=== PATIENT | male | born 1985 | race Caucasian/White ===

== ENCOUNTER 2020-07-04 15:56 | Emergency (ER) | payer OTHER ==
--- NOTE | 2020-07-04 16:40 | EDPHYS ---
Physician Documentation [facility] Name: Adrian Self Age: 35 yrs Sex: Male : 1985 Arrival Date: 07/04/2020 Time: 16:01 Bed 14 Private MD: ED Physician Chidi Stuart HPI: 07/04 16:54 This 35 yrs old Male presents to ER via Wheelchair with complaints of Toe snw Injury. 16:54 The patient presents with decreased range of motion, an injury, pain. The complaints snw affect the left foot. Context: The problem was sustained at home, resulted from stubbing toe on door. Mechanism of Injury: Plantar flexion-flexion the patient can partially bear weight, the patient is able to ambulate. Onset: The symptoms/episode began/occurred suddenly, just prior to arrival. Associated signs and symptoms: Pertinent positives: bleeding. Severity of symptoms: At their worst the symptoms were moderate. The patient has not experienced similar symptoms in the past. The patient has not recently seen a physician. no LOC, area bleeding at base of nail. Historical: - Allergies: 16:11 No Known Allergies; iw - Home Meds: 16:11 None [Active]; iw - PMHx: 16:11 None; iw - PSHx: 16:11 thumb; iw - Immunization history:: Last tetanus immunization: < 10 years ago. - Social history:: Smoking status: Patient denies any tobacco usage or history of. ROS: 16:53 Constitutional: Negative for fever, chills, and weight loss, Eyes: Negative for injury, snw pain, redness, and discharge, ENT: Negative for injury, pain, and discharge, Neck: Negative for injury, pain, and swelling, Cardiovascular: Negative for chest pain, palpitations, and edema, Respiratory: Negative for shortness of breath, cough, wheezing, and pleuritic chest pain, Abdomen/GI: Negative for abdominal pain, nausea, vomiting, diarrhea, and constipation, Back: Negative for injury and pain, : Negative for injury, bleeding, discharge, and swelling, Skin: Negative for injury, rash, and discoloration, Neuro: Negative for headache, weakness, numbness, tingling, and seizure, Psych: Negative for depression, anxiety, suicide ideation, homicidal ideation, and hallucinations. 16:53 MS/extremity: Positive for injury or acute deformity, decreased range of motion, tenderness, of the left first toe, bleeding from great toenail. Exam: 16:52 Constitutional: This is a well developed, well nourished patient who is awake, alert, snw and in no acute distress. Head/Face: Normocephalic, atraumatic. Eyes: Pupils equal round and reactive to light, extra-ocular motions intact. Lids and lashes normal. Conjunctiva and sclera are non-icteric and not injected. Cornea within normal limits. Periorbital areas with no swelling, redness, or edema. ENT: Nares patent. No nasal discharge, no septal abnormalities noted. Tympanic membranes are normal and external auditory canals are clear. Oropharynx with no redness, swelling, or masses, exudates, or evidence of obstruction, uvula midline. Mucous membranes moist. Neck: Trachea midline, no thyromegaly or masses palpated, and no cervical lymphadenopathy. Supple, full range of motion without nuchal rigidity, or vertebral point tenderness. No Meningismus. Chest/axilla: Normal chest wall appearance and motion. Nontender with no deformity. No lesions are appreciated. Cardiovascular: Regular rate and rhythm with a normal S1 and S2. No gallops, murmurs, or rubs. Normal PMI, no JVD. No pulse deficits. Respiratory: Lungs have equal breath sounds bilaterally, clear to auscultation and percussion. No rales, rhonchi or wheezes noted. No increased work of breathing, no retractions or nasal flaring. Abdomen/GI: Soft, non-tender, with normal bowel sounds. No distension or tympany. No guarding or rebound. No evidence of tenderness throughout. Back: No spinal tenderness. No costovertebral tenderness. Full range of motion. Skin: Warm, dry with normal turgor. Normal color with no rashes, no lesions, and no evidence of cellulitis. Neuro: Awake and alert, GCS 15, oriented to person, place, time, and situation. Cranial nerves II-XII grossly intact. Motor strength 5/5 in all extremities. Sensory grossly intact. Cerebellar exam normal. Normal gait. Psych: Awake, alert, with orientation to person, place and time. Behavior, mood, and affect are within normal limits. 16:52 Musculoskeletal/extremity: Extremities: grossly normal except: noted in the left first toe: decreased ROM, swelling, tenderness, blood seeping from base of nail. Vital Signs: 16:08 BP 130 / 91; Pulse 68; Resp 17; Temp 97.9; Pulse Ox 100% ; Pain 2/10; ll1 17:17 BP 135 / 86; Pulse 64; Resp 17; Pulse Ox 100% ; Pain 1/10; ll1 MDM: 16:40 Patient medically screened. snw 16:54 Data reviewed: vital signs, nurses notes. Data interpreted: Pulse oximetry: on room air snw is 100 %. Interpretation: normal. Counseling: I had a detailed discussion with the patient and/or guardian regarding: the historical points, exam findings, and any diagnostic results supporting the discharge/admit diagnosis, radiology results, the need for outpatient follow up, to return to the emergency department if symptoms worsen or persist or if there are any questions or concerns that arise at home. Special discussion: Based on the history and exam findings, there is no indication for further emergent testing or inpatient evaluation. I discussed with the patient/guardian the need to see the orthopedic surgeon for further evaluation of the symptoms. I discussed with the patient/guardian the need to see the consumer loan specialist for further evaluation of the symptoms. 07/04 16:19 Order name: Foot Left 3 View XRAY snw 07/04 17:06 Order name: RAD; Complete Time: 18:09 EDMS 07/04 16:39 Order name: Misc. Order: low pressure dressing; Complete Time: 16:50 snw 07/04 16:39 Order name: Post-op shoe; Complete Time: 16:50 snw Administered Medications: 16:49 Drug: KeFLEX 500 mg Route: PO; ll1 17:18 Follow up: Response: No adverse reaction; RASS: Alert and Calm (0) ll1 16:50 Drug: Tetanus-Diphtheria Toxoid Adult 0.5 ml {Radiology Supervisor: [employer]. Exp: ll1 11/27/2022. Lot #: [id number]. } Route: IM; Site: right deltoid; 17:18 Follow up: Response: No adverse reaction; RASS: Alert and Calm (0) ll1 Disposition: 07/05 09:41 Co-signature as Attending Physician, Chidi Stuart MD I agree with the assessment and kdr plan of care. Disposition: 07/04/20 16:40 Discharged to Home. Impression: Nondisplaced fracture of distal phalanx of left great toe. - Condition is Stable. - Discharge Instructions: Cast or Splint Care, Adult, RICE for Routine Care of Injuries, Toe Fracture, VIS, Tetanus, Diphtheria (Td) - [facility]. - Prescriptions for Keflex 500 mg Oral Capsule - take 1 capsule by ORAL route every 8 hours for 10 days; 30 capsule. Ultram 50 mg Oral Tablet - take 1 tablet by ORAL route every 6 hours As needed; 12 tablet. - Work release form, Medication Reconciliation Form, Thank You Letter, Antibiotic Education, Prescription Opioid Use form. - Follow up: Emergency Department; When: As needed; Reason: Worsening of condition. Follow up: Private Physician; When: 2 - 3 days; Reason: Recheck today's complaints, Continuance of care, Re-evaluation by your physician. Signatures: Dispatcher [employer] EDMS Chidi Stuart MD MD kdr Waters, Shelly, MERARI-Noel F[employer]ER CARE CASE MANAGER-Rachel Cantu RN RN iw Horacio Akhtar RN RN ll1 Corrections: (The following items were deleted from the chart) 07/04 17:18 16:40 07/04/2020 16:40 Discharged to Home. Impression: Nondisplaced fracture of distal ll1 phalanx of left great toe. Condition is Stable. Forms are Medication Reconciliation Form, Thank You Letter, Antibiotic Education, Prescription Opioid Use. Follow up: Emergency Department; When: As needed; Reason: Worsening of condition. Follow up: Private Physician; When: 2 - 3 days; Reason: Recheck today's complaints, Continuance of care, Re-evaluation by your physician. snw
--- NOTE | 2020-07-04 16:40 | ER ---
Nurse's Notes [facility] Name: Adrian Self Age: 35 yrs Sex: Male : 1985 Arrival Date: 07/04/2020 Time: 16:01 Bed 14 Private MD: Diagnosis: Nondisplaced fracture of distal phalanx of left great toe Presentation: 07/04 16:08 Coronavirus screen: Client denies travel out of the [place] in the last 14 days. At this ll1 time, the client does not indicate any symptoms associated with coronavirus-19. Initial Sepsis Screen: Does the patient meet any 2 criteria? No. Patient's initial sepsis screen is negative. Risk Assessment: Do you want to hurt yourself or someone else? Patient reports no desire to harm self or others. Onset of symptoms was July 04, 2020. 16:08 Acuity: BRAD 4 ll1 16:08 Method Of Arrival: Wheelchair ll1 16:09 Chief complaint: Patient states: pt tripped at home, left great toe bent downward, iw feels like he broke the toes, bleeding at nail bed. Ebola Screen: Patient negative for fever greater than or equal to 101.5 degrees Fahrenheit, and additional compatible Ebola Virus Disease symptoms Patient denies exposure to infectious person. Patient denies travel to an Ebola-affected area in the 21 days before illness onset. No symptoms or risks identified at this time. Initial Sepsis Screen: Does the patient have a suspected source of infection? No. Patient's initial sepsis screen is negative. Historical: - Allergies: 16:11 No Known Allergies; iw - Home Meds: 16:11 None [Active]; iw - PMHx: 16:11 None; iw - PSHx: 16:11 thumb; iw - Immunization history:: Last tetanus immunization: < 10 years ago. - Social history:: Smoking status: Patient denies any tobacco usage or history of. Screenin:08 Abuse screen: Denies threats or abuse. Nutritional screening: No deficits noted. ll1 Tuberculosis screening: No symptoms or risk factors identified. Fall Risk None identified. Ambulatory Aid- Crutches/Cane/Walker (15 pts). Gait- Impaired (20 pts.). Total Andrew Fall Scale indicates Low Risk Score (25-44 pts). Fall prevention measures have been instituted. Side Rails Up X 2 Frequent Obs/Assesments occuring As available Patient and Family Educated on Fall Prevention Program and strategies. Assessment: 16:09 General: Appears in no apparent distress. Behavior is calm, cooperative. Pain: ll1 Complains of pain in L foot 2st digit Pain currently is 2 out of 10 on a pain scale. Quality of pain is described as aching, Pain began. Neuro: No deficits noted. Cardiovascular: No deficits noted. Respiratory: No deficits noted. GI: No deficits noted. Derm: Wound noted Left foot 1st digit Wound is abrasion to nail bed of 1st digit. Reports pain. Musculoskeletal: Circulation, motion, and sensation intact. Capillary refill < 3 seconds, Swelling present in L foot 1st digit Reports pain in L foot 1st digit. Injury Description: Bruise. 17:05 Reassessment: Patient and/or family updated on plan of care and expected duration. Pain ll1 level reassessed. Patient is alert, oriented x 3, equal unlabored respirations, skin warm/dry/pink. Vital Signs: 16:08 BP 130 / 91; Pulse 68; Resp 17; Temp 97.9; Pulse Ox 100% ; Pain 2/10; ll1 17:17 BP 135 / 86; Pulse 64; Resp 17; Pulse Ox 100% ; Pain 1/10; ll1 ED Course: 16:01 Patient arrived in ED. ds1 16:08 Triage completed. ll1 16:08 Arm band placed on Patient placed in an exam room, on a stretcher. ll1 16:12 Patient has correct armband on for positive identification. Bed in low position. Call ll1 light in reach. Side rails up X 1. Cardiac monitoring not applicable on this patient. 16:18 Horacio Akhtar RN is Primary Nurse. ll1 16:19 Linda Vaca FNP-C is PHCP. snw 16:19 Chidi Stuart MD is Attending Physician. snw 17:17 Dressings: Kerlix X 1; left first toe non-adherent dressing x 1 left first toe. Wound ll1 care: to abrasion, located on left first toe was cleaned with with saline, Patient tolerated well. 17:19 No provider procedures requiring assistance completed. Patient did not have IV access ll1 during this emergency room visit. Administered Medications: 16:49 Drug: KeFLEX 500 mg Route: PO; ll1 17:18 Follow up: Response: No adverse reaction; RASS: Alert and Calm (0) ll1 16:50 Drug: Tetanus-Diphtheria Toxoid Adult 0.5 ml {Claims Director: [employer]. Exp: ll1 11/27/2022. Lot #: [id number]. } Route: IM; Site: right deltoid; 17:18 Follow up: Response: No adverse reaction; RASS: Alert and Calm (0) ll1 Outcome: 16:40 Discharge ordered by . erica 17:18 Patient left the ED. ll1 17:19 Discharged to home ambulatory. ll1 17:19 Condition: stable 17:19 Discharge instructions given to patient, Instructed on discharge instructions, follow up and referral plans. medication usage, wound care, Demonstrated understanding of instructions, follow-up care, medications, wound care, Prescriptions given X 2. Signatures: Linda Vaca, MICRO PHOTOGRAPHER-C MICRO PHOTOGRAPHER-Csnw Abbi Mueller ds1 Rachel Rosario RN RN iw Horacio Akhtar RN RN [facility]
[2020-07-04] MEDS ORDERED: CEPHALEXIN 250 MG CAP ONE (16:57)
[2020-07-04] MEDS ORDERED: TETANUS & DIPHTHERIA TOX,ADULT 0.5 ML VIAL ONE (16:57)
--- NOTE | 2020-07-04 17:06 | RAD REPORT ---
EXAM DESCRIPTION: RAD - Foot Left 3 View - 07/04/2020 4:35 pm CLINICAL HISTORY: Pain;Smash injury, trauma to the first toe COMPARISON: Foot Left 3 View dated 07/14/2014 FINDINGS: Transverse fracture is present across the proximal portion of the first distal phalanx. No significant distraction or angulation deformity. No involvement of the articular surface. Remainder the foot is intact. No air or foreign body in the soft tissues. IMPRESSION: Transverse fracture of the first distal phalanx. No significant distraction or angulatio n.
[2020-07-04 17:27] VITALS: TEMP 97.9; O2SAT 100
[2020-07-04 17:29] VITALS: BP 135/86
== END 2020-07-04 17:18 | disposition home or self-care (01) ==
LOC: ER 15:56
DX: S92.425A Nondisplaced fracture of distal phalanx of left great toe, initial encounter for closed fracture (principal); W22.8XXA Striking against or struck by other objects, initial encounter; Y93.9 Activity, unspecified; Y92.009 Unspecified place in unspecified non-institutional (private) residence as the place of occurrence of the external cause; Z23 Encounter for immunization
CPT/HCPCS: 90471; 90714; 99283